=== PATIENT | male | born 1995 | race Caucasian/White ===

== ENCOUNTER 2021-09-11 18:01 | Emergency (ER) | payer BC, OTHER ==
[2021-09-11] MEDS ORDERED: cefTRIAXone 1 GM Vial IM ONE (19:14)
[2021-09-11] MEDS ORDERED: Ketorolac 30 MG/ML SDV IM ONE (19:15)
== END 2021-09-11 20:15 | disposition home or self-care (01) ==
LOC: FB.ED 18:01
DX: L73.9 Follicular disorder, unspecified (principal); L00 Staphylococcal scalded skin syndrome; Z88.0 Allergy status to penicillin
CPT/HCPCS: 96372; 99283; J0696; J1885